=== PATIENT | female | born 1960 | race Caucasian/White ===

== ENCOUNTER 2018-04-09 04:59 | Emergency (ER) | payer MEDICAID ==
[~2018-04-09] VITALS: Ht 165.1 cm; Wt 101.0 kg
[~2018-04-09 04:59] MED LIST: ALBU18HF2 INH; ASPI-1265 PO; ATOR20TA66 PO; CLOP75TA35 PO; FLUO20CA39 PO; FLUT250D INH; FURO-150 PO; LAMO25TA PO; LINA290C PO; LORA1TAB PO; METO-292 PO; METO25TA6 PO; MORP-11 PO; MULT-920 PO; NORCO10T PO; PANT40TA4 PO; POTA10TA36 PO; PRED20TA PO; PRIM250T32 PO; TIOT18CA7 IH
--- NOTE | 2018-04-09 05:10 | NUR ---
PT AMBULATORY TO ER [facility] FROM EMS [facility] IN REPLACED BY [facility]. AFTER SITTING IN ER [facility] FOR LESS THAN 5 MINS, PT INFORMS STAFF THAT SHE HAS DEFICATED HERSELF. WANTING STAFF TO CLEAN HER. WIPES PROVIDED
[2018-04-09] MEDS ORDERED: aspirin 81mg tab.chew PO ONE (05:25)
[2018-04-09] MEDS ORDERED: ondansetron/PF 4mg/2ml inj IV ONE (05:25)
[2018-04-09] MEDS ORDERED: morphine 4 MG/ML inj SYRINge IV ONE ×2 (05:25→07:05)
[2018-04-09] MEDS ORDERED: proCHLORperazine 10 MG/2 ml inj IV ONE (07:05)
[2018-04-09 07:12] LABS: ALANINE AMINOTRANSFERASE 26 U/L (12-78); ALBUMIN 3.2 G/DL (3.4-5.0); ALBUMIN/GLOBULIN RATIO 0.8 (1.1-1.5); ALKALINE PHOSPHATASE 103 IU/L (46-116); ANION GAP 10 (8-16); ASPARTATE AMINO TRANSFERASE 14 U/L (10-37); BILIRUBIN,TOTAL 0.5 MG/DL (0.1-1.0); BLOOD UREA NITROGEN 28 MG/DL (7-18); BUN/CREATININE RATIO 26.7 (6.6-38.0); CALCIUM 9.2 MG/DL (8.5-10.1); CHLORIDE 104 MMOL/L (99-107); CREATININE 1.05 MG/DL (0.40-0.90); GLUCOSE 222 MG/DL (70-104); POTASSIUM 4.2 MMOL/L (3.5-5.1); SODIUM 142 MMOL/L (135-145); TOTAL CARBON DIOXIDE 28.1 MMOL/L (24-32); TOTAL PROTEIN 7.2 G/DL (6.4-8.2); eGFR 54 ML/MIN
[2018-04-09 07:14] LABS: BASOPHILS % (AUTO) 0 % (0-1); EOSINOPHILS % (AUTO) 0.2 % (0-6); HEMATOCRIT 49.9 % (35.0-45.0); HEMOGLOBIN 15.8 g/dl (12.0-16.0); LYMPHOCYTES # (AUTO) 1.6 X10'3 (1.1-4.8); LYMPHOCYTES % (AUTO) 18.3 % (21-51); MEAN CORPUSCULAR HEMOGLOBIN 27.7 PG (27.0-31.0); MEAN CORPUSCULAR HGB CONC 31.6 % (33.0-36.5); MEAN CORPUSCULAR VOLUME 87.9 FL (78-98); MONOCYTES # (AUTO) 0.4 X10'3 (0-0.9); NEUTROPHILS % (AUTO) 77.5 % (42-75); PLATELET COUNT 221 X10'3 (140-440); RED BLOOD COUNT 5.68 X10'6 (4.20-5.60); RED CELL DISTRIBUTION WIDTH 15.2 % (11.5-14.5)
[2018-04-09 07:18] LABS: MAGNESIUM 1.9 MG/DL (1.5-2.4)
--- NOTE | 2018-04-09 07:39 | NUR ---
PT FEELING A LITTLE BETTER BUT C/O EPI GASTRIC PAIN. NOTIFY MD. ORDERS RECEIVED.
[2018-04-09 07:58] LABS: LIPASE 348 U/L (73-393)
[2018-04-09] MEDS ORDERED: LIDOcaine Viscous 15ml cup PO ONE (08:15)
[2018-04-09] MEDS ORDERED: famotidine 20mg tablet PO ONE (08:15)
[2018-04-09] MEDS ORDERED: mag hydrox/Alum hydrox/simeth 30ml oral suspension PO ONE (08:15)
[2018-04-09] MEDS ORDERED: levoFLOXACIN-Levaquin 750MG/D5 150 ML IV STA (09:40)
[2018-04-09] MEDS ORDERED: LEVO750T21 PO (10:59)
[2018-04-09 11:15] VITALS: BP 135/58
--- NOTE | 2018-04-09 11:16 | NUR ---
PT REPORTS THAT HER ABD PAIN IS MUCH BETTER.
== END 2018-04-09 12:43 | disposition home or self-care (01) ==
LOC: ER 05:00
DX: J18.1 Lobar pneumonia, unspecified organism (principal); F11.23 Opioid dependence with withdrawal; G89.29 Other chronic pain; R11.10 Vomiting, unspecified; R19.7 Diarrhea, unspecified; E11.42 Type 2 diabetes mellitus with diabetic polyneuropathy; I25.10 Atherosclerotic heart disease of native coronary artery without angina pectoris; J44.9 Chronic obstructive pulmonary disease, unspecified; M19.90 Unspecified osteoarthritis, unspecified site; M79.7 Fibromyalgia; F12.90 Cannabis use, unspecified, uncomplicated; Z95.5 Presence of coronary angioplasty implant and graft; Z90.49 Acquired absence of other specified parts of digestive tract; Z98.890 Other specified postprocedural states; Z59.0 Homelessness; Z88.5 Allergy status to narcotic agent; Z88.1 Allergy status to other antibiotic agents; Z88.8 Allergy status to other drugs, medicaments and biological substances; Z79.82 Long term (current) use of aspirin; Z79.899 Other long term (current) drug therapy
CPT/HCPCS: 36415; 71045; 80053; 83690; 83735; 83880; 84484; 85025; 87040; 93005; 96365; 96366; 96375; 96376; 99284; J0780; J1956; J2270; J2405

== ENCOUNTER 2018-05-08 13:15 | Inpatient (IN) | payer MEDICAID ==
[~2018-05-08] VITALS: Ht 165.1 cm; Wt 111.5 kg
[~2018-05-08 13:15] MED LIST changes: -PRED20TA PO
[2018-05-08] MEDS ORDERED: ipratropium/albuterol 3ml nebule NEB ONE (14:05)
[2018-05-08 14:12] LABS: ALANINE AMINOTRANSFERASE 15 U/L (12-78); ALBUMIN/GLOBULIN RATIO 0.4 (1.1-1.5); ALKALINE PHOSPHATASE 173 IU/L (46-116); ANION GAP 15 (8-16); ASPARTATE AMINO TRANSFERASE 18 U/L (10-37); BILIRUBIN,TOTAL 0.7 MG/DL (0.1-1.0); BLOOD UREA NITROGEN 46 MG/DL (7-18); CALCIUM 8.7 MG/DL (8.5-10.1); CHLORIDE 94 MMOL/L (99-107); CREATININE 2.09 MG/DL (0.40-0.90); GLUCOSE 167 MG/DL (70-104); POTASSIUM 4.4 MMOL/L (3.5-5.1); SODIUM 129 MMOL/L (135-145); TOTAL CARBON DIOXIDE 20.2 MMOL/L (24-32); TOTAL PROTEIN 6.6 G/DL (6.4-8.2); eGFR 25 ML/MIN
[2018-05-08 14:13] LABS: BASOPHILS % (AUTO) 0.2 % (0-1); EOSINOPHILS % (AUTO) 0 % (0-6); HEMATOCRIT 41.4 % (35.0-45.0); HEMOGLOBIN 13.6 g/dl (12.0-16.0); LYMPHOCYTES # (AUTO) 0.5 X10'3 (1.1-4.8); LYMPHOCYTES % (AUTO) 2.9 % (21-51); MEAN CORPUSCULAR HEMOGLOBIN 28.7 PG (27.0-31.0); MEAN CORPUSCULAR HGB CONC 32.9 g/dL (33.0-36.5); MEAN CORPUSCULAR VOLUME 87.4 FL (78-98); MEAN PLATELET VOLUME 8.8 FL (7.4-10.4); MONOCYTES # (AUTO) 0.2 X10'3 (0-0.9); MONOCYTES % (AUTO) 1.2 % (2-12); NEUTROPHILS # (AUTO) 15.2 X10'3 (1.8-7.7); NEUTROPHILS % (AUTO) 95.7 % (42-75); PLATELET COUNT 209 X10'3 (140-440); RED BLOOD COUNT 4.74 X10'6 (4.20-5.60); RED CELL DISTRIBUTION WIDTH 16.5 % (11.5-14.5); WHITE BLOOD COUNT 15.9 X10'3 (4.5-11.0)
[2018-05-08 14:32] LABS: PARTIAL THROMBOPLASTIN TIME 32 SECONDS (22-32)
[2018-05-08] MEDS ORDERED: normal saline 1000ML IV soln IVB ONE ×2 (14:35→14:55)
[2018-05-08] MEDS ORDERED: CefTRIAXone 2gm/D5W 50ml 50 ML IV ONE (14:40)
[2018-05-08 14:54] LABS: ANISOCYTOSIS 1+; PLATELET ESTIMATE NORMAL; TOTAL CELLS COUNTED 100
[2018-05-08 14:55] LABS: TOXIC GRANULATION 1+
[2018-05-08] MEDS ORDERED: azithromycin/NS 500mg/250ml 250 ML IV ONE (14:55)
--- NOTE | 2018-05-08 15:30 | NUR ---
PAGED HOSP 1530 FOR 2ND TIME
[2018-05-08] MEDS ORDERED: magnesium hydroxide 30ml (MOM) UD suspension PO PRN (15:35)
[2018-05-08] MEDS ORDERED: acetaminophen 325mg tablet PO PRN (15:35)
[2018-05-08] MEDS ORDERED: mag hydrox/Alum hydrox/simeth 30ml oral suspension PO PRN (15:35)
[2018-05-08] MEDS ORDERED: ondansetron/PF 4mg/2ml inj IV PRN (15:35)
[2018-05-08] MEDS: vancomycin/NS 1 GM ADD-VANTAGE 250 ML IV SCH ×2 (15:37→17:27)
--- NOTE | 2018-05-08 15:55 | NUR ---
PT'S IV PULLED OUT.
[2018-05-08] MEDS ORDERED: CLOP75TA15 PO (16:06)
[2018-05-08] MEDS ORDERED: METO25TA6 PO (16:07)
[2018-05-08] MEDS ORDERED: POTA8TAB8 PO (16:11)
[2018-05-08] MEDS ORDERED: ASPI-1130 PO (16:11)
[2018-05-08] MEDS ORDERED: GLIM4TAB79 PO (16:11)
[2018-05-08] MEDS ORDERED: ATOR40TA72 PO (16:11)
[2018-05-08] MEDS ORDERED: LAMO100T89 PO (16:11)
[2018-05-08] MEDS ORDERED: LISI40TA4 PO (16:11)
[2018-05-08] MEDS ORDERED: ALBU2.5V10 IH (16:11)
[2018-05-08] MEDS ORDERED: HYDR-3973 PO (16:11)
[2018-05-08] MEDS ORDERED: METF-438 PO (16:11)
[2018-05-08] MEDS ORDERED: FURO80TA3 PO (16:11)
[2018-05-08] MEDS ORDERED: MSC30T PO (16:11)
[2018-05-08] MEDS ORDERED: METO10TA3 PO (16:11)
[2018-05-08] MEDS ORDERED: FLUO-1 PO (16:13)
[2018-05-08] MEDS ORDERED: TIZA2TAB4 PO (16:13)
[2018-05-08] MEDS ORDERED: FLUT1AER IH (16:13)
[2018-05-08] MEDS ORDERED: TIOT18CA3 IH (16:13)
[2018-05-08] MEDS ORDERED: FLUT16SP26 NS (16:17)
[2018-05-08] MEDS ORDERED: FERR-29 PO (16:17)
[2018-05-08] MEDS ORDERED: MONT10TA24 PO (16:17)
[2018-05-08] MEDS ORDERED: tizanidine 4mg tablet PO PRN (16:25)
[2018-05-08] MEDS: ipratropium/albuterol 3ml nebule NEB SCH ×2 (19:04→22:56)
[2018-05-08] MEDS: levoFLOXACIN-Levaquin 500mg/D5 100 ML IV SCH (19:12)
--- NOTE | 2018-05-08 19:16 | NUR ---
RT AT BEDSIDE
[2018-05-08 19:30] VITALS: BP 131/57
--- NOTE | 2018-05-08 19:45 | NUR ---
Patient arrived on floor via gurney from the ED after receiving report from Codi CHUNG. Patient was transferred to hospital bed utilizing a slide board. Patient extremely lethargic, unable to stay awake. Does not answer questions appropriately. Vitals taken, placed on bedside mobile. Contacted Dr. Wilkes regarding patient ALOC, ABG ordered at this time. Results called to Dr. Wilkes, no new orders at this time. Patient has dried feces on clothing, abdomen, groin and buttocks. Patient changed into hospital gown, and clean at this time, all soiled bedding changed at this time as well. Will continue to monitor closely
[2018-05-08] MEDS: metoprolol tartrate 25mg tablet PO SCH (20:00)
[2018-05-08] MEDS ORDERED: furosemide 10 MG/1 ML 10ml inj IV SCH (20:00)
[2018-05-08 20:01] LABS: ABG BASE EXCESS -6.9 mmol/L (-2.0-3.0); ABG OXYGEN SATURATION 89.8 % (95-98); ABG PCO2 (T) 45.8 mmHg (32.0-45.0); ABG PH (T) 7.259 (7.350-7.450); ALLEN'S TEST Positive; FCOHb 3.3 % (0.5-1.5); FLOW 4 L/min; FO2Hb 86.8 % (94-100); PATIENT TEMPERATURE 37.4; TOTAL HEMOGLOBIN 13.4 G/dl (12.0-16.0)
[2018-05-08] MEDS ORDERED: dextrose 50%-water 50ml dispensing syringe IV PRN ×2 (20:50)
[2018-05-08] MEDS ORDERED: glucagon, human recombinant 1mg kit SUBCUT PRN (20:50)
[2018-05-08] MEDS ORDERED: dextrose ORAL solution 15 GM/59 ML bottle PO PRN ×2 (20:50)
[2018-05-08] MEDS ORDERED: MESSAGE TO PHARMACY PO ONE (20:50)
[2018-05-08] MEDS: insulin glargine (Lantus) pen - multi-dose SQ SCH (21:00)
[2018-05-08] MEDS: methylPREDNISolone sod succ 125mg/2ml vial IV SCH (21:22)
[2018-05-08] MEDS: metoclopramide 10mg tablet PO SCH (21:24)
[2018-05-08] MEDS: heparin, porcine 5000 units/ml vial SQ SCH (21:24)
[2018-05-08 23:00] VITALS: BP 109/41
[2018-05-09] MEDS: methylPREDNISolone sod succ 125mg/2ml vial IV SCH ×4 (02:31→20:13)
[2018-05-09] MEDS: ipratropium/albuterol 3ml nebule NEB SCH ×6 (02:41→22:32)
[2018-05-09] MEDS ORDERED: normal saline 1000ml 1,000 ML IV ONE (03:10)
[2018-05-09 03:31] LABS: BASOPHILS % (AUTO) 0 % (0-1); EOSINOPHILS % (AUTO) 0 % (0-6); HEMOGLOBIN 12.4 g/dl (12.0-16.0); LYMPHOCYTES # (AUTO) 0.7 X10'3 (1.1-4.8); MEAN CORPUSCULAR HEMOGLOBIN 28.8 PG (27.0-31.0); MEAN CORPUSCULAR HGB CONC 32.6 g/dL (33.0-36.5); MEAN CORPUSCULAR VOLUME 88.3 FL (78-98); MEAN PLATELET VOLUME 8.8 FL (7.4-10.4); MONOCYTES # (AUTO) 0.4 X10'3 (0-0.9); MONOCYTES % (AUTO) 2.4 % (2-12); NEUTROPHILS % (AUTO) 93.6 % (42-75); PLATELET COUNT 216 X10'3 (140-440); RED BLOOD COUNT 4.31 X10'6 (4.20-5.60); RED CELL DISTRIBUTION WIDTH 16.9 % (11.5-14.5); WHITE BLOOD COUNT 18.2 X10'3 (4.5-11.0)
[2018-05-09 03:47] LABS: ALBUMIN 1.7 G/DL (3.4-5.0); ANION GAP 13 (8-16); BLOOD UREA NITROGEN 48 MG/DL (7-18); BUN/CREATININE RATIO 27.9 (6.6-38.0); CALCIUM 8.6 MG/DL (8.5-10.1); CHLORIDE 98 MMOL/L (99-107); CREATININE 1.72 MG/DL (0.40-0.90); GLUCOSE 165 MG/DL (70-104); POTASSIUM 4.5 MMOL/L (3.5-5.1); SODIUM 134 MMOL/L (135-145); TOTAL CARBON DIOXIDE 22.7 MMOL/L (24-32); eGFR 31 ML/MIN
[2018-05-09 06:00] VITALS: BP 113/46
--- NOTE | 2018-05-09 06:33 | NUR ---
Problems reprioritized. Patient report given, questions answered & plan of care reviewed with Barb CHUNG.
[2018-05-09] MEDS: BUDESONIDE 0.25 MG/2 ML AMPUL.NEB IH SCH ×2 (07:29→18:35)
[2018-05-09] MEDS: heparin, porcine 5000 units/ml vial SQ SCH ×3 (08:00→20:11)
[2018-05-09] MEDS ORDERED: albuterol 2.5 MG/3 ML nebule NEB SCH (08:00)
[2018-05-09] MEDS ORDERED: ipratropium 0.5 MG/2.5ML nebule IH SCH (08:00)
--- NOTE | 2018-05-09 09:23 | NUR ---
DM consult: Pt with A1c 7.5. Pt seen by GIOVANNI at previous visit 03/23/18, pt denied written DM education or any questions about DM management at that time. Pt admit with sepsis secondary to PNA. Per physical assessment pt A/O x 2, fatigued, extremely lethargic and unable to stay awake. DM and protein education not appropriate at this time. Will continue to follow and provide education once pt more alert and oriented. Addendum: 05/09/18 at [address] Amended: Links added.
[2018-05-09] MEDS ORDERED: magnesium 4gm in 100ml NS 100 ML IV PRN (09:35)
[2018-05-09] MEDS ORDERED: potassium Cl 40MEQ/NS 500ml 500 ML IV PRN ×2 (09:35)
[2018-05-09] MEDS ORDERED: potassium Cl 20 mEq SR tablet PO PRN ×2 (09:35)
[2018-05-09] MEDS ORDERED: magnesium Cl slow-release 64mg tablet PO PRN (09:35)
[2018-05-09] MEDS: levoFLOXACIN-Levaquin 500mg/D5 100 ML IV SCH (09:58)
[2018-05-09] MEDS: metoclopramide 10mg tablet PO SCH ×2 (10:08→20:07)
[2018-05-09] MEDS: clopidogrel 75mg tablet PO SCH (10:08)
[2018-05-09] MEDS: potassium chloride 8mEq ER tablet PO SCH (10:09)
[2018-05-09] MEDS: montelukast 10mg tablet PO SCH (10:09)
[2018-05-09] MEDS: aspirin 81mg tablet.DR PO SCH (10:09)
[2018-05-09] MEDS: atorvastatin 20mg tablet PO SCH (10:09)
[2018-05-09] MEDS: ferrous sulfate 325mg tablet PO SCH (10:09)
[2018-05-09] MEDS: metoprolol tartrate 25mg tablet PO SCH ×2 (10:10→20:08)
[2018-05-09] MEDS: lamoTRIgine 100mg tablet PO SCH (10:10)
[2018-05-09] MEDS: fluticasone nasal spray 16GM bottle NS SCH (10:11)
[2018-05-09] MEDS: insulin Lispro (HumaLOG) vial - multi-dose SQ SCH ×3 (10:30→18:35)
[2018-05-09] MEDS: FLUoxetine 20mg capsule PO SCH (10:32)
[2018-05-09] MEDS: furosemide 40mg/4ml inj IV SCH ×2 (10:34→20:11)
[2018-05-09 11:00] VITALS: BP 118/51
--- NOTE | 2018-05-09 12:39 | NUR ---
Paged Dr. Linton: PAGER ID: [phone] MESSAGE: Barb CHILDS [phone] RE: Alice Sharma [phone]. Can we order a carb controlled diet for this patient? Patient is diabetic but has HH only diet ordered. Thank you.
[2018-05-09 15:00] VITALS: BP 108/47
[2018-05-09 16:43] LABS: CLARITY,URINE CLEAR (Clear); COLOR,URINE YELLOW (Yellow); GLUCOSE, URINE NEGATIVE (Neg); KETONES,URINE NEGATIVE (Neg); LEUKOCYTE ESTERASE ,URINE NEGATIVE (Neg); NITRITES, URINE NEGATIVE (Neg); OCCULT BLOOD,URINE NEGATIVE (Neg); PH,URINE 5.5 (4.8-8.0); PROTEIN,URINE TRACE mg/dl (Neg); UROBILINOGEN,URINE 0.2 E.U/dL (0.2-1.0)
[2018-05-09 16:51] LABS: UA COLLECTION TYPE NON-SPECIFIED
[2018-05-09 16:53] LABS: MUCUS STRANDS FEW /LPF (Neg); SQUAMOUS EPITHELIAL CELL,UR MODERATE /LPF (FEW); URINE AMPHETAMINE SCREEN NEGATIVE (Neg); URINE BARBITUATE SCREEN NEGATIVE (Neg); URINE BENZODIAZEPINES SCREEN NEGATIVE (Neg); URINE CANNABINOID SCREEN NEGATIVE (Neg); URINE COCAINE SCREEN NEGATIVE (Neg); URINE METHADONE SCREEN NEGATIVE (Neg); URINE OPIATE SCREEN POSITIVE (Neg); URINE PHENCYCLIDINE SCREEN NEGATIVE (Neg)
[2018-05-09 16:54] LABS: AMORPHOUS URATES 1+; BACTERIA,URINE 1+ /HPF (Neg)
[2018-05-09 16:55] LABS: RBC,URINE NONE SEEN /HPF (0-2); WBC,URINE 0-4 /HPF (0-4)
[2018-05-09 18:00] VITALS: BP 119/53
--- NOTE | 2018-05-09 18:23 | NUR ---
Problems reprioritized. Patient report given, questions answered & plan of care reviewed with Julieth CHUNG.
--- NOTE | 2018-05-09 18:24 | NUR ---
Patient in room PCU 3020. I have received report from SHELDON Day and had the opportunity to ask questions and assume patient care. Patient was sleeping comfortably on hospital bed, she just finished dinner. She is A&O x3, WHATLEY and is appropriate just not interested in anything but sleeping. She is easy to arouse, I will continue to monitor.
[2018-05-09 19:00] VITALS: BP 119/53
[2018-05-09] MEDS: lactobacillus rhamnosus 10,000 MMU CELLS/CAPSULE PO SCH (20:11)
[2018-05-09] MEDS: lisinopril 20mg tablet PO SCH (22:12)
[2018-05-09] MEDS: insulin glargine (Lantus) pen - multi-dose SQ SCH (22:17)
[2018-05-09 23:00] VITALS: BP 107/52
--- NOTE | 2018-05-09 23:45 | NUR ---
Notified by Annie in the Tele Box that patient's HR is increased 110-140, her rhythm looks like she is trying to go into afib. Patient is asymptomatic at this time, I will get an EKG and call the hospitalist Dr. Wilkes.
[2018-05-10] VITALS (24 sets, daily range): BP systolic 85–133; BP diastolic 48–100
--- NOTE | 2018-05-10 | NUR ---
Called Dr. Wilkes regarding patient new onset of Afib, her HR is between 110-135 and is asymptomatic at this time. Per MD give Cardizem 10mg IV push now and monitor.
[2018-05-10] MEDS ORDERED: diltiazem 5mg/ml 5ml inj. IV ONE (00:05)
--- NOTE | 2018-05-10 01:00 | NUR ---
Cld Dr. Wilkes, patient's rhythm is still afib and her heart rate is back up to the 103-140's. Per MD start Cardizem 5mg/hr drip.
[2018-05-10] MEDS: diltiazem-D5W 125mg/125ml 125 ML IV SCH ×2 (01:35→16:51)
[2018-05-10] MEDS: HYDROcodone/acetaminophen 10/325mg tab PO PRN ×3 (01:43→16:51)
--- NOTE | 2018-05-10 01:46 | NUR ---
Patient requesting Morphine, she reports she takes it daily. I advised her Dr. Callejas discontinued that med, but I have [place] 10/325mg that the MD ordered for her pain. She is not happy about this, but will speak with the MD tomorrow.
[2018-05-10] MEDS: methylPREDNISolone sod succ 125mg/2ml vial IV SCH ×4 (02:40→19:45)
[2018-05-10] MEDS: ipratropium/albuterol 3ml nebule NEB SCH ×6 (02:54→23:13)
[2018-05-10 06:07] LABS: BASOPHILS % (AUTO) 0 % (0-1); EOSINOPHILS # (AUTO) 0.5 X10'3 (0-0.9); EOSINOPHILS % (AUTO) 2.1 % (0-6); HEMATOCRIT 37.9 % (35.0-45.0); HEMOGLOBIN 12.3 g/dl (12.0-16.0); LYMPHOCYTES # (AUTO) 0.5 X10'3 (1.1-4.8); LYMPHOCYTES % (AUTO) 2.4 % (21-51); MEAN CORPUSCULAR HEMOGLOBIN 28.6 PG (27.0-31.0); MEAN CORPUSCULAR HGB CONC 32.4 g/dL (33.0-36.5); MEAN CORPUSCULAR VOLUME 88.1 FL (78-98); MEAN PLATELET VOLUME 8.7 FL (7.4-10.4); MONOCYTES # (AUTO) 0.4 X10'3 (0-0.9); NEUTROPHILS # (AUTO) 20.5 X10'3 (1.8-7.7); NEUTROPHILS % (AUTO) 93.5 % (42-75); PLATELET COUNT 236 X10'3 (140-440); RED BLOOD COUNT 4.31 X10'6 (4.20-5.60); RED CELL DISTRIBUTION WIDTH 16.9 % (11.5-14.5)
[2018-05-10 06:24] LABS: ALBUMIN 1.7 G/DL (3.4-5.0); ANION GAP 14 (8-16); BLOOD UREA NITROGEN 49 MG/DL (7-18); BUN/CREATININE RATIO 38.6 (6.6-38.0); CALCIUM 9.3 MG/DL (8.5-10.1); CHLORIDE 100 MMOL/L (99-107); CREATININE 1.27 MG/DL (0.40-0.90); GLUCOSE 229 MG/DL (70-104); MAGNESIUM 2.1 MG/DL (1.5-2.4); PHOSPHORUS 4.2 MG/DL (2.3-4.5); POTASSIUM 4.1 MMOL/L (3.5-5.1); SODIUM 135 MMOL/L (135-145); TOTAL CARBON DIOXIDE 20.9 MMOL/L (24-32); eGFR 44 ML/MIN
--- NOTE | 2018-05-10 06:29 | NUR ---
Precepted for SHELDON Butler and I agree with his charting.
[2018-05-10] MEDS: clopidogrel 75mg tablet PO SCH (07:11)
[2018-05-10] MEDS: FLUoxetine 20mg capsule PO SCH (07:12)
[2018-05-10] MEDS: atorvastatin 20mg tablet PO SCH (07:13)
[2018-05-10] MEDS: lactobacillus rhamnosus 10,000 MMU CELLS/CAPSULE PO SCH ×2 (07:13→19:44)
[2018-05-10] MEDS: lamoTRIgine 100mg tablet PO SCH (07:13)
[2018-05-10] MEDS: furosemide 40mg/4ml inj IV SCH ×2 (07:14→19:45)
[2018-05-10] MEDS: aspirin 81mg tablet.DR PO SCH (07:14)
[2018-05-10] MEDS: montelukast 10mg tablet PO SCH (07:14)
[2018-05-10] MEDS: metoclopramide 10mg tablet PO SCH ×2 (07:14→19:44)
[2018-05-10] MEDS: potassium chloride 8mEq ER tablet PO SCH (07:14)
[2018-05-10] MEDS: ferrous sulfate 325mg tablet PO SCH (07:15)
[2018-05-10] MEDS: metoprolol tartrate 25mg tablet PO SCH ×2 (07:15→19:44)
[2018-05-10] MEDS: heparin, porcine 5000 units/ml vial SQ SCH (07:16)
[2018-05-10] MEDS: levoFLOXACIN-Levaquin 250mg/D5 50 ML IV SCH (08:47)
[2018-05-10] MEDS: fluticasone nasal spray 16GM bottle NS SCH (08:47)
[2018-05-10] MEDS: insulin Lispro (HumaLOG) vial - multi-dose SQ SCH ×3 (08:55→18:32)
[2018-05-10] MEDS: BUDESONIDE 0.25 MG/2 ML AMPUL.NEB IH SCH ×2 (11:31→19:19)
--- NOTE | 2018-05-10 13:24 | NUR ---
Problems reprioritized. Patient report given, questions answered & plan of care reviewed with SHELDON Caballero.
--- NOTE | 2018-05-10 14:00 | NUR ---
talked to MD octavio beach going @ 10 and order was for 5 he okayed the increase to 10 will change order in MAR
[2018-05-10] MEDS ORDERED: digoxin 250mcg/ml 2ml ampule IV ONE ×2 (16:59→23:00)
--- NOTE | 2018-05-10 17:47 | NUR ---
MD cunningham called to man if he wanted both cardizem gtt and dig for pt, he asked to reduce rate of cardizem gtt to 5.
[2018-05-10] MEDS: apixaban 5mg tablet PO SCH (19:44)
[2018-05-10] MEDS: morphine ER 30mg tablet PO SCH (19:44)
[2018-05-10] MEDS: lisinopril 20mg tablet PO SCH (19:48)
[2018-05-10] MEDS: insulin glargine (Lantus) pen - multi-dose SQ SCH (20:57)
[2018-05-11] VITALS (9 sets, daily range): BP systolic 120–137; BP diastolic 42–88
[2018-05-11] MEDS: HYDROcodone/acetaminophen 10/325mg tab PO PRN (01:43)
[2018-05-11] MEDS: ipratropium/albuterol 3ml nebule NEB SCH ×4 (03:25→14:58)
[2018-05-11 05:53] LABS: BASOPHILS % (AUTO) 0 % (0-1); EOSINOPHILS # (AUTO) 0.2 X10'3 (0-0.9); EOSINOPHILS % (AUTO) 1.2 % (0-6); HEMATOCRIT 38.4 % (35.0-45.0); HEMOGLOBIN 12.7 g/dl (12.0-16.0); LYMPHOCYTES # (AUTO) 0.6 X10'3 (1.1-4.8); LYMPHOCYTES % (AUTO) 4.2 % (21-51); MEAN CORPUSCULAR HGB CONC 33.1 g/dL (33.0-36.5); MEAN CORPUSCULAR VOLUME 87.6 FL (78-98); MEAN PLATELET VOLUME 8.7 FL (7.4-10.4); MONOCYTES % (AUTO) 0.2 % (2-12); NEUTROPHILS # (AUTO) 12.5 X10'3 (1.8-7.7); NEUTROPHILS % (AUTO) 94.4 % (42-75); PLATELET COUNT 257 X10'3 (140-440); RED BLOOD COUNT 4.38 X10'6 (4.20-5.60); RED CELL DISTRIBUTION WIDTH 17.3 % (11.5-14.5); WHITE BLOOD COUNT 13.3 X10'3 (4.5-11.0)
[2018-05-11 06:08] LABS: ALBUMIN 1.8 G/DL (3.4-5.0); ANION GAP 11 (8-16); BLOOD UREA NITROGEN 49 MG/DL (7-18); BUN/CREATININE RATIO 40.8 (6.6-38.0); CALCIUM 9.3 MG/DL (8.5-10.1); CHLORIDE 101 MMOL/L (99-107); GLUCOSE 248 MG/DL (70-104); PHOSPHORUS 4.4 MG/DL (2.3-4.5); POTASSIUM 4.3 MMOL/L (3.5-5.1); SODIUM 136 MMOL/L (135-145); TOTAL CARBON DIOXIDE 23.9 MMOL/L (24-32); eGFR 47 ML/MIN
--- NOTE | 2018-05-11 06:09 | NUR ---
Problems reprioritized. Patient report given, questions answered & plan of care reviewed with SHELDON Valle.
--- NOTE | 2018-05-11 06:11 | NUR ---
Patient in room PCU 3020. I have received report from Ada CHUNG and had the opportunity to ask questions and assume patient care.
[2018-05-11] MEDS ORDERED: digoxin 125mcg (0.125mg) tablet PO SCH (07:00)
[2018-05-11] MEDS: potassium chloride 8mEq ER tablet PO SCH (07:55)
[2018-05-11] MEDS: fluticasone nasal spray 16GM bottle NS SCH (07:55)
[2018-05-11] MEDS: lamoTRIgine 100mg tablet PO SCH (07:56)
[2018-05-11] MEDS: furosemide 40mg/4ml inj IV SCH (07:56)
[2018-05-11] MEDS: clopidogrel 75mg tablet PO SCH (07:57)
[2018-05-11] MEDS: apixaban 5mg tablet PO SCH (07:57)
[2018-05-11] MEDS: lactobacillus rhamnosus 10,000 MMU CELLS/CAPSULE PO SCH (07:58)
[2018-05-11] MEDS: montelukast 10mg tablet PO SCH (07:58)
[2018-05-11] MEDS: metoclopramide 10mg tablet PO SCH (07:59)
[2018-05-11] MEDS: aspirin 81mg tablet.DR PO SCH (08:00)
[2018-05-11] MEDS: morphine ER 30mg tablet PO SCH (08:00)
[2018-05-11] MEDS: FLUoxetine 20mg capsule PO SCH (08:00)
[2018-05-11] MEDS: metoprolol tartrate 25mg tablet PO SCH (08:02)
[2018-05-11] MEDS: atorvastatin 20mg tablet PO SCH (08:03)
[2018-05-11] MEDS: ferrous sulfate 325mg tablet PO SCH (08:04)
[2018-05-11] MEDS: levoFLOXACIN-Levaquin 250mg/D5 50 ML IV SCH (08:04)
[2018-05-11] MEDS: methylPREDNISolone sod succ 125mg/2ml vial IV SCH (08:11)
[2018-05-11] MEDS: insulin Lispro (HumaLOG) vial - multi-dose SQ SCH ×2 (08:25→14:06)
--- NOTE | 2018-05-11 12:30 | NUR ---
paged Dr. Linton PAGER ID: [phone] MESSAGE: [phone] Alice Sharma. she has started PO dig this am and has been rate controlled. on Cardizem IV at 5mLs/hr. would you like to continue IV Cardizem. thank you. Riki CHUNG. ext [phone]
[2018-05-11] MEDS ORDERED: LACT1CAP26 PO (12:35)
[2018-05-11] MEDS ORDERED: DIGO125T5 PO (12:35)
[2018-05-11] MEDS ORDERED: PRED10TA23 PO (12:35)
[2018-05-11] MEDS ORDERED: APIX5TAB3 PO (12:35)
[2018-05-11] MEDS: BUDESONIDE 0.25 MG/2 ML AMPUL.NEB IH SCH (12:36)
[2018-05-11] MEDS ORDERED: LEVO500T89 PO ×3 (12:40→16:46)
--- NOTE | 2018-05-11 15:20 | NUR ---
SS met with pt provided a copy of the [employer] current listing of low income apartments that accommodates individuals w/disability. Pt scheduled to d/c today and will return to the [place]. SS referral closed.
[2018-05-11] MEDS ORDERED: DILT180C89 PO (16:08)
[2018-05-11] MEDS ORDERED: CLOP75TA35 PO (16:20)
[2018-05-11] MEDS ORDERED: METO10TA3 PO (16:32)
--- NOTE | 2018-05-11 19:15 | NUR ---
pt received discharge education, all questions answered. IV d/c'd; cannula intact. pt removed from mobile and wheeled downstairs to private vehicle with all belongs.
== END 2018-05-11 19:10 | disposition home or self-care (01) | DRG 720 ==
LOC: ER 13:15 → ED HOLD 15:33 → CMPBEDREQ 19:31 → PCU 3S 19:32
PROVIDERS: ADMIT Family Medicine; ATTEND Family Medicine
DX: A41.9 Sepsis, unspecified organism (principal); N17.9 Acute kidney failure, unspecified; J18.9 Pneumonia, unspecified organism; E11.42 Type 2 diabetes mellitus with diabetic polyneuropathy; I50.9 Heart failure, unspecified; I48.91 Unspecified atrial fibrillation; E87.1 Hypo-osmolality and hyponatremia; F17.210 Nicotine dependence, cigarettes, uncomplicated; G89.4 Chronic pain syndrome; I25.10 Atherosclerotic heart disease of native coronary artery without angina pectoris; F12.90 Cannabis use, unspecified, uncomplicated; F32.9 Major depressive disorder, single episode, unspecified; F41.9 Anxiety disorder, unspecified; M19.90 Unspecified osteoarthritis, unspecified site; J44.0 Chronic obstructive pulmonary disease with (acute) lower respiratory infection; Z60.2 Problems related to living alone; J44.1 Chronic obstructive pulmonary disease with (acute) exacerbation; M79.7 Fibromyalgia; Z79.01 Long term (current) use of anticoagulants; Z79.82 Long term (current) use of aspirin; Z91.19 Patient's noncompliance with other medical treatment and regimen; Z95.5 Presence of coronary angioplasty implant and graft; Z99.81 Dependence on supplemental oxygen; Z59.0 Homelessness; Z88.1 Allergy status to other antibiotic agents; Z88.5 Allergy status to narcotic agent; Z88.8 Allergy status to other drugs, medicaments and biological substances; Z90.49 Acquired absence of other specified parts of digestive tract; Z82.5 Family history of asthma and other chronic lower respiratory diseases; Z83.3 Family history of diabetes mellitus; Z81.8 Family history of other mental and behavioral disorders; Z71.6 Tobacco abuse counseling
CPT/HCPCS: 36415; 36600; 71045; 80048; 80053; 80305; 81001; 82803; 82948; 83605; 83735; 83880; 84100; 84145; 84484; 85018; 85025; 85610; 85730; 87040; 87070; 87502; 87503; 93005; 94640; 94760; 96361; 96365; 99285; G0378; J0696; J1160; J1644; J1815; J1940; J1956; J2930; J3370; J3490; J7030; J8597

== ENCOUNTER 2019-01-03 00:13 | Inpatient (IN) | payer MEDICAID ==
[~2019-01-03] VITALS: Ht 162.6 cm; Wt 98.6 kg
[~2019-01-03 00:13] MED LIST changes: -ALBU18HF2 INH; +APIX5TAB3 PO; +ASPI-1130 PO; -ASPI-1265 PO; -ATOR20TA66 PO; +ATOR40TA72 PO; +DILT180C89 PO; +FERR-29 PO; +FLUO-1 PO; -FLUO20CA39 PO; -FLUT250D INH; -FURO-150 PO; +FURO20TA4 PO; +HYDR-3973 PO; +LAMO100T PO; -LAMO25TA PO; +LEVO750T46 PO; -LINA290C PO; +LISI40TA4 PO; -LORA1TAB PO; -METO-292 PO; +METO10TA3 PO; +MONT10TA24 PO; -MORP-11 PO; +MSC30T PO; -MULT-920 PO; -NORCO10T PO; -PANT40TA4 PO; -POTA10TA36 PO; +POTA8TAB8 PO; +PRED10TA PO; -PRIM250T32 PO; +TIOT18CA3 IH; -TIOT18CA7 IH; +TIZA2TAB5 PO
[2019-01-03] MEDS ORDERED: ipratropium/albuterol 3ml nebule NEB ONE (00:15)
[2019-01-03] MEDS ORDERED: normal saline 1000ML IV soln IV ONE (00:15)
[2019-01-03] MEDS ORDERED: levoFLOXACIN-Levaquin 750MG/D5 150 ML IV STA (00:35)
[2019-01-03] MEDS ORDERED: methylPREDNISolone sod succ 125mg/2ml vial IV ONE (00:40)
[2019-01-03 00:47] LABS: BASOPHILS % (AUTO) 0.5 % (0-1); EOSINOPHILS # (AUTO) 0.1 X10'3 (0-0.9); EOSINOPHILS % (AUTO) 1.2 % (0-6); HEMATOCRIT 47.6 % (35.0-45.0); HEMOGLOBIN 15.7 g/dl (12.0-16.0); LYMPHOCYTES # (AUTO) 2.3 X10'3 (1.1-4.8); LYMPHOCYTES % (AUTO) 33.2 % (21-51); MEAN CORPUSCULAR VOLUME 90.8 FL (78-98); MEAN PLATELET VOLUME 8.1 FL (7.4-10.4); MONOCYTES # (AUTO) 0.5 X10'3 (0-0.9); MONOCYTES % (AUTO) 7.5 % (2-12); NEUTROPHILS % (AUTO) 57.6 % (42-75); PLATELET COUNT 260 X10'3 (140-440); RED BLOOD COUNT 5.24 X10'6 (4.20-5.60); RED CELL DISTRIBUTION WIDTH 14.2 % (11.5-14.5); WHITE BLOOD COUNT 6.9 X10'3 (4.5-11.0)
[2019-01-03 00:58] LABS: ALANINE AMINOTRANSFERASE 38 U/L (12-78); ALBUMIN 3.2 G/DL (3.4-5.0); ALBUMIN/GLOBULIN RATIO 0.7 (1.1-1.5); ALKALINE PHOSPHATASE 120 IU/L (46-116); ANION GAP 5 (8-16); ASPARTATE AMINO TRANSFERASE 19 U/L (10-37); BILIRUBIN,TOTAL 0.2 MG/DL (0.1-1.0); BLOOD UREA NITROGEN 32 MG/DL (7-18); BUN/CREATININE RATIO 23.9 (6.6-38.0); CALCIUM 9.1 MG/DL (8.5-10.1); CHLORIDE 100 MMOL/L (99-107); CREATININE 1.34 MG/DL (0.40-0.90); GLUCOSE 187 MG/DL (70-104); POTASSIUM 4.9 MMOL/L (3.5-5.1); SODIUM 136 MMOL/L (135-145); TOTAL CARBON DIOXIDE 30.6 MMOL/L (24-32); TOTAL PROTEIN 7.5 G/DL (6.4-8.2); eGFR 41 ML/MIN
[2019-01-03 01:06] LABS: MAGNESIUM 1.9 MG/DL (1.5-2.4); TROPONIN I < 0.04 NG/ML (0.0-0.05)
--- NOTE | 2019-01-03 02:25 | NUR ---
Patient failed road test, desated down to 84% on 3L when walking.
[2019-01-03] MEDS ORDERED: PANT40TA4 PO (02:44)
[2019-01-03] MEDS ORDERED: METF500T PO (02:44)
[2019-01-03] MEDS ORDERED: LINA145C PO (02:44)
[2019-01-03] MEDS ORDERED: magnesium Cl slow-release 64mg tablet PO PRN (02:45)
[2019-01-03] MEDS ORDERED: ondansetron/PF 4mg/2ml inj IV PRN (02:45)
[2019-01-03] MEDS ORDERED: magnesium 2GM in 50ml NS 50 ML IV PRN (02:45)
[2019-01-03] MEDS ORDERED: acetaminophen 325mg tablet PO PRN ×2 (02:45)
[2019-01-03] MEDS ORDERED: mag hydrox/Alum hydrox/simeth 30ml oral suspension PO PRN (02:45)
[2019-01-03] MEDS ORDERED: magnesium 4gm in 100ml NS 100 ML IV PRN (02:45)
[2019-01-03] MEDS ORDERED: potassium Cl 20 mEq SR tablet PO PRN ×2 (02:45)
[2019-01-03] MEDS ORDERED: potassium CL 10mEq/100ml bag 100 ML IV PRN ×2 (02:45)
[2019-01-03] MEDS ORDERED: ipratropium/albuterol 3ml nebule NEB PRN (02:45)
[2019-01-03] MEDS ORDERED: magnesium hydroxide 30ml (MOM) UD suspension PO PRN (02:45)
[2019-01-03] MEDS: ipratropium/albuterol 3ml nebule NEB SCH ×6 (03:28→23:29)
[2019-01-03 04:45] VITALS: BP 97/57
[2019-01-03] MEDS ORDERED: FLU VACC QS2019-20 36MOS UP/PF 60 MCG/0.5 ML SYRINGE IMVAC ONE (05:05)
[2019-01-03] MEDS ORDERED: tizanidine 4mg tablet PO PRN (05:40)
[2019-01-03] MEDS ORDERED: metoclopramide 10mg tablet PO PRN (05:40)
[2019-01-03 06:00] VITALS: BP 97/57
--- NOTE | 2019-01-03 06:15 | NUR ---
Patient in room ORTHO 4012. I have received report from Amena, RN and had the opportunity to ask questions and assume patient care. Addendum: 01/03/19 at 0616 by Sharda Ortiz RN Amended: Links added.
[2019-01-03 07:16] LABS: ALBUMIN 2.8 G/DL (3.4-5.0); ANION GAP 9 (8-16); BLOOD UREA NITROGEN 27 MG/DL (7-18); BUN/CREATININE RATIO 22.5 (6.6-38.0); CALCIUM 8.8 MG/DL (8.5-10.1); CHLORIDE 102 MMOL/L (99-107); GLUCOSE 278 MG/DL (70-104); POTASSIUM 4.9 MMOL/L (3.5-5.1); SODIUM 138 MMOL/L (135-145); eGFR 46 ML/MIN
[2019-01-03] MEDS: K and/or MAG REPLACEMENT MC SCH (08:00)
[2019-01-03] MEDS: metoprolol tartrate 25mg tablet PO SCH ×2 (08:00→20:56)
[2019-01-03] MEDS: lactobacillus rhamnosus 10,000 MMU CELLS/CAPSULE PO SCH ×2 (08:24→20:56)
[2019-01-03] MEDS: montelukast 10mg tablet PO SCH (08:24)
[2019-01-03] MEDS: atorvastatin 20mg tablet PO SCH (08:24)
[2019-01-03] MEDS: ferrous sulfate 325mg tablet PO SCH (08:25)
[2019-01-03] MEDS: clopidogrel 75mg tablet PO SCH (08:25)
[2019-01-03] MEDS: pantoprazole 40mg Tablet.DR PO SCH (08:25)
[2019-01-03] MEDS: apixaban 5mg tablet PO SCH ×2 (08:25→20:56)
[2019-01-03] MEDS: morphine ER 30mg tablet PO SCH ×2 (08:25→20:56)
[2019-01-03] MEDS: potassium chloride 8mEq ER tablet PO SCH (08:25)
[2019-01-03] MEDS: FLUoxetine 20mg capsule PO SCH (08:25)
[2019-01-03] MEDS: furosemide 20MG tablet PO SCH ×2 (08:25→20:57)
[2019-01-03] MEDS: lamoTRIgine 100mg tablet PO SCH (08:26)
[2019-01-03] MEDS: methylPREDNISolone sod succ/PF 40mg inj. IV SCH ×3 (08:26→23:38)
[2019-01-03] MEDS ORDERED: dextrose 50%-water 50ml dispensing syringe IV PRN ×2 (09:30)
[2019-01-03] MEDS ORDERED: MESSAGE TO PHARMACY PO ONE (09:30)
[2019-01-03] MEDS ORDERED: glucagon, human recombinant 1mg kit SUBCUT PRN (09:30)
[2019-01-03] MEDS ORDERED: dextrose ORAL solution 15 GM/59 ML bottle PO PRN ×2 (09:30)
[2019-01-03 10:00] VITALS: BP 112/56
[2019-01-03] MEDS: insulin Lispro (HumaLOG) vial - multi-dose SQ SCH ×4 (10:46→21:08)
[2019-01-03] MEDS: HYDROcodone/acetaminophen 10/325mg tab PO PRN ×2 (10:47→17:37)
[2019-01-03 11:24] LABS: HEMOGLOBIN A1C 7.2 % (4.5-6.2)
--- NOTE | 2019-01-03 15:50 | NUR ---
Malnutrition/DM Consults: A1C 7.2. Pt refused DM ed during RD visit. Pt has no visible signs of muscle/fat wasting, no edema, PO 100% meals increased from admit meeting needs. Does not meet malnutrition criteria at this time. Addendum: 01/03/19 at [address] Amended: Links added.
[2019-01-03 18:00] VITALS: BP 109/44
--- NOTE | 2019-01-03 18:16 | NUR ---
Problems reprioritized. Patient report given, questions answered & plan of care reviewed with SHELDON Villatoro. Addendum: 01/03/19 at 1816 by Sharda Ortiz RN Amended: Links added.
--- NOTE | 2019-01-03 18:30 | NUR ---
Patient in room ORTHO 4012. I have received report from SHELDON Robin and had the opportunity to ask questions and assume patient care.
[2019-01-03 20:57] VITALS: BP 126/52
[2019-01-03] MEDS: insulin glargine (Lantus) pen - multi-dose SQ SCH (21:06)
[2019-01-03 22:00] VITALS: BP 126/54
[2019-01-03] MEDS: levoFLOXACIN-Levaquin 500mg/D5 100 ML IV SCH (23:38)
[2019-01-04] MEDS: ipratropium/albuterol 3ml nebule NEB SCH ×6 (02:42→23:00)
[2019-01-04] MEDS: HYDROcodone/acetaminophen 10/325mg tab PO PRN (04:34)
[2019-01-04 06:00] VITALS: BP 131/56
[2019-01-04 06:15] VITALS: BP 131/56
--- NOTE | 2019-01-04 06:23 | NUR ---
Problems reprioritized. Patient report given, questions answered & plan of care reviewed with SHELDON Casiano.
--- NOTE | 2019-01-04 06:30 | NUR ---
I have received patient report from Shauna CHUNG
[2019-01-04 07:22] LABS: BASOPHILS % (AUTO) 0.5 % (0-1); EOSINOPHILS % (AUTO) 0 % (0-6); HEMOGLOBIN 14.5 g/dl (12.0-16.0); LYMPHOCYTES # (AUTO) 0.8 X10'3 (1.1-4.8); LYMPHOCYTES % (AUTO) 13.2 % (21-51); MEAN CORPUSCULAR HEMOGLOBIN 30.1 PG (27.0-31.0); MEAN CORPUSCULAR HGB CONC 33.1 g/dL (33.0-36.5); MEAN CORPUSCULAR VOLUME 90.9 FL (78-98); MEAN PLATELET VOLUME 8.2 FL (7.4-10.4); MONOCYTES # (AUTO) 0.2 X10'3 (0-0.9); MONOCYTES % (AUTO) 3.5 % (2-12); NEUTROPHILS # (AUTO) 5.3 X10'3 (1.8-7.7); NEUTROPHILS % (AUTO) 82.8 % (42-75); PLATELET COUNT 226 X10'3 (140-440); RED BLOOD COUNT 4.83 X10'6 (4.20-5.60); RED CELL DISTRIBUTION WIDTH 13.9 % (11.5-14.5); WHITE BLOOD COUNT 6.4 X10'3 (4.5-11.0)
[2019-01-04] MEDS: methylPREDNISolone sod succ/PF 40mg inj. IV SCH ×3 (07:22→23:55)
[2019-01-04] MEDS: metoprolol tartrate 25mg tablet PO SCH ×2 (07:28→21:01)
[2019-01-04] MEDS: lactobacillus rhamnosus 10,000 MMU CELLS/CAPSULE PO SCH ×2 (07:29→21:00)
[2019-01-04] MEDS: FLUoxetine 20mg capsule PO SCH (07:29)
[2019-01-04] MEDS: montelukast 10mg tablet PO SCH (07:29)
[2019-01-04] MEDS: clopidogrel 75mg tablet PO SCH (07:29)
[2019-01-04] MEDS: morphine ER 30mg tablet PO SCH ×2 (07:29→21:00)
[2019-01-04] MEDS: apixaban 5mg tablet PO SCH ×2 (07:29→21:01)
[2019-01-04] MEDS: ferrous sulfate 325mg tablet PO SCH (07:29)
[2019-01-04] MEDS: furosemide 20MG tablet PO SCH ×2 (07:30→21:01)
[2019-01-04] MEDS: pantoprazole 40mg Tablet.DR PO SCH (07:30)
[2019-01-04] MEDS: atorvastatin 20mg tablet PO SCH (07:30)
[2019-01-04] MEDS: potassium chloride 8mEq ER tablet PO SCH (07:30)
[2019-01-04] MEDS: lamoTRIgine 100mg tablet PO SCH (07:30)
[2019-01-04 07:35] LABS: ALBUMIN 3.1 G/DL (3.4-5.0); ANION GAP 6 (8-16); BLOOD UREA NITROGEN 24 MG/DL (7-18); BUN/CREATININE RATIO 21.6 (6.6-38.0); CALCIUM 9.2 MG/DL (8.5-10.1); CHLORIDE 102 MMOL/L (99-107); CREATININE 1.11 MG/DL (0.40-0.90); GLUCOSE 293 MG/DL (70-104); MAGNESIUM 1.8 MG/DL (1.5-2.4); POTASSIUM 5.6 MMOL/L (3.5-5.1); SODIUM 137 MMOL/L (135-145); eGFR 51 ML/MIN
[2019-01-04] MEDS: K and/or MAG REPLACEMENT MC SCH (08:00)
[2019-01-04] MEDS: insulin Lispro (HumaLOG) vial - multi-dose SQ SCH ×3 (08:42→19:01)
[2019-01-04 10:00] VITALS: BP 140/68
[2019-01-04] MEDS ORDERED: FLU VACC QS2019-20 36MOS UP/PF 60 MCG/0.5 ML SYRINGE IMVAC ONE (10:00)
--- NOTE | 2019-01-04 11:07 | NUR ---
Student documentation: I have reviewed all interventions, assessments performed and [facility] Student Medication Administration: For this medication-pass time frame, all medication were reviewed, dispensed, administered and documented per hospital policy by [facility].
--- NOTE | 2019-01-04 11:21 | NUR ---
I paged dr. arciniega about high potassium 5.6. waiting for response.
[2019-01-04] MEDS ORDERED: sodium polystyrene sulfonate 15gm/60ml oral suspension PO ONE (11:25)
--- NOTE | 2019-01-04 12:00 | NUR ---
I paged Dr. Callejas about high K he ordered kayexalate for patient.
--- NOTE | 2019-01-04 14:44 | NUR ---
DM Consult: Already addressed in prior DM note; see below. Addendum: 01/04/19 at [address] Amended: Links added.
--- NOTE | 2019-01-04 15:12 | NUR ---
Patient report given to Courtney bowen RN
--- NOTE | 2019-01-04 15:33 | NUR ---
ASSUMED CARE OF PATIENT FROM MART RN, NO QUESTIONS. WENT AND INTRODUCED MYSELF, PATIENT SITTING UP AT BEDSIDE GETTING BREATHING TX, PATIENT STATES NO NEEDS AT THIS TIME. I HAVE REVIEWED AND AGREE WITH PRIOR ASSESSMENT OF PATIENT.
[2019-01-04 18:35] VITALS: BP 130/67
[2019-01-04 18:37] VITALS: BP 130/67
[2019-01-04] MEDS: insulin glargine (Lantus) pen - multi-dose SQ SCH (21:09)
[2019-01-04 21:53] VITALS: BP 139/64
[2019-01-04] MEDS: levoFLOXACIN-Levaquin 500mg/D5 100 ML IV SCH (23:55)
[2019-01-05 06:00] VITALS: BP 128/51
[2019-01-05] MEDS: HYDROcodone/acetaminophen 10/325mg tab PO PRN (06:00)
--- NOTE | 2019-01-05 06:10 | NUR ---
Patient in room ORTHO 4012. I have received report from Annia/Julieth Yanez and had the opportunity to ask questions and assume patient care.
[2019-01-05 06:12] LABS: BASOPHILS % (AUTO) 0.1 % (0-1); EOSINOPHILS % (AUTO) 0 % (0-6); HEMATOCRIT 43.6 % (35.0-45.0); HEMOGLOBIN 14.4 g/dl (12.0-16.0); LYMPHOCYTES # (AUTO) 0.9 X10'3 (1.1-4.8); LYMPHOCYTES % (AUTO) 14.6 % (21-51); MEAN CORPUSCULAR HEMOGLOBIN 30.2 PG (27.0-31.0); MEAN CORPUSCULAR VOLUME 91.5 FL (78-98); MEAN PLATELET VOLUME 8.4 FL (7.4-10.4); MONOCYTES # (AUTO) 0.2 X10'3 (0-0.9); MONOCYTES % (AUTO) 2.6 % (2-12); NEUTROPHILS # (AUTO) 5.1 X10'3 (1.8-7.7); NEUTROPHILS % (AUTO) 82.7 % (42-75); PLATELET COUNT 226 X10'3 (140-440); RED BLOOD COUNT 4.76 X10'6 (4.20-5.60); RED CELL DISTRIBUTION WIDTH 14.2 % (11.5-14.5); WHITE BLOOD COUNT 6.2 X10'3 (4.5-11.0)
[2019-01-05] MEDS: ipratropium/albuterol 3ml nebule NEB SCH ×3 (07:04→15:00)
[2019-01-05 07:18] LABS: ANION GAP 7 (8-16); BLOOD UREA NITROGEN 26 MG/DL (7-18); BUN/CREATININE RATIO 22.8 (6.6-38.0); CHLORIDE 100 MMOL/L (99-107); CREATININE 1.14 MG/DL (0.40-0.90); GLUCOSE 286 MG/DL (70-104); MAGNESIUM 1.7 MG/DL (1.5-2.4); SODIUM 137 MMOL/L (135-145); TOTAL CARBON DIOXIDE 29.9 MMOL/L (24-32); eGFR 49 ML/MIN
[2019-01-05] MEDS: K and/or MAG REPLACEMENT MC SCH (08:00)
[2019-01-05] MEDS: insulin Lispro (HumaLOG) vial - multi-dose SQ SCH ×2 (09:25→13:57)
[2019-01-05] MEDS: lactobacillus rhamnosus 10,000 MMU CELLS/CAPSULE PO SCH (09:30)
[2019-01-05] MEDS: methylPREDNISolone sod succ/PF 40mg inj. IV SCH ×2 (09:30→16:13)
[2019-01-05] MEDS: ferrous sulfate 325mg tablet PO SCH (09:30)
[2019-01-05] MEDS: apixaban 5mg tablet PO SCH (09:30)
[2019-01-05] MEDS: lamoTRIgine 100mg tablet PO SCH (09:31)
[2019-01-05] MEDS: furosemide 20MG tablet PO SCH (09:31)
[2019-01-05] MEDS: atorvastatin 20mg tablet PO SCH (09:31)
[2019-01-05] MEDS: metoprolol tartrate 25mg tablet PO SCH (09:33)
[2019-01-05] MEDS: morphine ER 30mg tablet PO SCH (09:34)
[2019-01-05] MEDS: pantoprazole 40mg Tablet.DR PO SCH (09:34)
[2019-01-05] MEDS: clopidogrel 75mg tablet PO SCH (09:34)
[2019-01-05] MEDS: montelukast 10mg tablet PO SCH (09:35)
[2019-01-05] MEDS: FLUoxetine 20mg capsule PO SCH (09:35)
[2019-01-05 10:00] VITALS: BP 139/68
[2019-01-05] MEDS ORDERED: levoFLOXACIN 500mg tablet PO SCH (11:00)
--- NOTE | 2019-01-05 13:29 | NUR ---
PAGER ID: [phone] MESSAGE: Ms. Edith Meade in [phone] would like to discharge. Please advise. Thank you Meli
[2019-01-05] MEDS ORDERED: LEVO500T89 PO (15:04)
[2019-01-05] MEDS ORDERED: PRED20TA PO (15:04)
--- NOTE | 2019-01-05 16:30 | NUR ---
Reviewed discharge instructions with pt. Pt verbalized understanding. Pt is alert, oriented and does not have c/o pain or discomfort at thsi time. All of pt's belongings were returned to pt. Pt was wheeled downstairs to be driven home by a local transport company.
[2019-01-05] MEDS ORDERED: furosemide 20 MG/2 ML vial IV SCH (20:00)
== END 2019-01-05 16:30 | disposition home or self-care (01) | DRG 133 ==
LOC: ER 00:13 → ED HOLD 02:42 → EDBEDREQ 03:57 → CMPBEDREQ 04:17 → ORTHO 4S 04:37
PROVIDERS: ADMIT Hospitalist; ATTEND Family Medicine
DX: J96.21 Acute and chronic respiratory failure with hypoxia (principal); N17.9 Acute kidney failure, unspecified; E11.42 Type 2 diabetes mellitus with diabetic polyneuropathy; E87.5 Hyperkalemia; I50.9 Heart failure, unspecified; E78.5 Hyperlipidemia, unspecified; F17.210 Nicotine dependence, cigarettes, uncomplicated; G89.4 Chronic pain syndrome; I25.10 Atherosclerotic heart disease of native coronary artery without angina pectoris; I48.91 Unspecified atrial fibrillation; J20.9 Acute bronchitis, unspecified; F12.90 Cannabis use, unspecified, uncomplicated; M19.90 Unspecified osteoarthritis, unspecified site; F41.8 Other specified anxiety disorders; J44.0 Chronic obstructive pulmonary disease with (acute) lower respiratory infection; J44.1 Chronic obstructive pulmonary disease with (acute) exacerbation; K59.09 Other constipation; M79.7 Fibromyalgia; Z59.0 Homelessness; Z81.8 Family history of other mental and behavioral disorders; Z79.01 Long term (current) use of anticoagulants; Z99.81 Dependence on supplemental oxygen; Z88.5 Allergy status to narcotic agent; Z88.8 Allergy status to other drugs, medicaments and biological substances; Z90.49 Acquired absence of other specified parts of digestive tract; Z95.5 Presence of coronary angioplasty implant and graft; Z79.899 Other long term (current) drug therapy; Z79.82 Long term (current) use of aspirin
CPT/HCPCS: 36415; 71045; 80048; 80053; 82948; 83036; 83605; 83735; 83880; 84145; 84484; 85025; 87040; 87081; 93005; 94640; 94760; 96365; 99285; G0378; J1815; J1956; J2920; J2930; Q2037

== ENCOUNTER 2019-03-12 14:59 | Inpatient (IN) | payer MEDICAID ==
[~2019-03-12] VITALS: Ht 162.6 cm; Wt 102.0 kg
[~2019-03-12 14:59] MED LIST changes: -ASPI-1130 PO; -DILT180C89 PO; +LEVO500T89 PO; -LEVO750T46 PO; +LINA145C PO; +METF500T PO; +PANT40TA4 PO; -POTA8TAB8 PO; -PRED10TA PO
[2019-03-12] MEDS ORDERED: ipratropium/albuterol 3ml nebule NEB ONE (15:35)
[2019-03-12 15:56] LABS: BASOPHILS % (AUTO) 0.3 % (0-1); EOSINOPHILS % (AUTO) 0.1 % (0-6); HEMATOCRIT 46.8 % (35.0-45.0); HEMOGLOBIN 15.7 g/dl (12.0-16.0); LYMPHOCYTES # (AUTO) 1.1 X10'3 (1.1-4.8); MEAN CORPUSCULAR HGB CONC 33.5 g/dL (33.0-36.5); MEAN CORPUSCULAR VOLUME 89.5 FL (78-98); MEAN PLATELET VOLUME 8.9 FL (7.4-10.4); MONOCYTES # (AUTO) 0.7 X10'3 (0-0.9); MONOCYTES % (AUTO) 11.6 % (2-12); NEUTROPHILS # (AUTO) 4.4 X10'3 (1.8-7.7); PLATELET COUNT 164 X10'3 (140-440); RED BLOOD COUNT 5.23 X10'6 (4.20-5.60); RED CELL DISTRIBUTION WIDTH 15.1 % (11.5-14.5); WHITE BLOOD COUNT 6.3 X10'3 (4.5-11.0)
[2019-03-12] MEDS ORDERED: predniSONE 20 mg tablet PO ONE (16:10)
[2019-03-12 16:12] LABS: ALANINE AMINOTRANSFERASE 32 U/L (12-78); ALBUMIN 3.4 G/DL (3.4-5.0); ALBUMIN/GLOBULIN RATIO 0.9 (1.1-1.5); ALKALINE PHOSPHATASE 116 IU/L (46-116); ANION GAP 6 (8-16); ASPARTATE AMINO TRANSFERASE 17 U/L (10-37); BILIRUBIN,TOTAL 0.5 MG/DL (0.1-1.0); BLOOD UREA NITROGEN 43 MG/DL (7-18); BUN/CREATININE RATIO 31.6 (6.6-38.0); CALCIUM 8.8 MG/DL (8.5-10.1); CHLORIDE 98 MMOL/L (99-107); CREATININE 1.36 MG/DL (0.40-0.90); GLUCOSE 162 MG/DL (70-104); POTASSIUM 5.1 MMOL/L (3.5-5.1); SODIUM 136 MMOL/L (135-145); TOTAL CARBON DIOXIDE 31.7 MMOL/L (24-32); TOTAL PROTEIN 7.3 G/DL (6.4-8.2); eGFR 40 ML/MIN
[2019-03-12] MEDS ORDERED: acetaminophen 325mg tablet PO ONE (16:20)
[2019-03-12] MEDS ORDERED: ondansetron/PF 4mg/2ml inj IV ONE (16:20)
[2019-03-12] MEDS ORDERED: normal saline 1000ML IV soln IVB ONE (17:15)
[2019-03-12] MEDS ORDERED: heparin 25,000 UNIT/250ml bag 250 ML IV SCH (18:12)
[2019-03-12] MEDS ORDERED: acetaminophen 650mg rectal suppository RC PRN (18:15)
[2019-03-12] MEDS ORDERED: morphine 2 MG/ML inj. syringe IV PRN (18:15)
[2019-03-12] MEDS ORDERED: acetaminophen 325mg tablet PO PRN ×2 (18:15)
[2019-03-12] MEDS ORDERED: diphenhydrAMINE 50 mg/ml inj IV PRN (18:15)
[2019-03-12] MEDS ORDERED: HYDROcodone/acetaminophen 5mg/325mg tablet PO PRN (18:15)
[2019-03-12] MEDS ORDERED: diphenhydrAMINE 25mg capsule PO PRN (18:15)
[2019-03-12] MEDS ORDERED: magnesium Cl slow-release 64mg tablet PO PRN (18:15)
[2019-03-12] MEDS ORDERED: glucagon, human recombinant 1mg kit SUBCUT PRN (18:15)
[2019-03-12] MEDS ORDERED: magnesium hydroxide 30ml (MOM) UD suspension PO PRN (18:15)
[2019-03-12] MEDS ORDERED: mag hydrox/Alum hydrox/simeth 30ml oral suspension PO PRN (18:15)
[2019-03-12] MEDS ORDERED: methylPREDNISolone sod succ 125mg/2ml vial IV ONE (18:15)
[2019-03-12] MEDS ORDERED: dextrose 50%-water 50ml dispensing syringe IV PRN ×2 (18:15)
[2019-03-12] MEDS ORDERED: magnesium 4gm in 100ml NS 100 ML IV PRN (18:15)
[2019-03-12] MEDS ORDERED: heparin 10,000 units/1 ML INJ IV ONE (18:15)
[2019-03-12] MEDS ORDERED: bisacodyl 10mg suppository rectal RC PRN (18:15)
[2019-03-12] MEDS ORDERED: potassium Cl 20 mEq SR tablet PO PRN ×2 (18:15)
[2019-03-12] MEDS ORDERED: ondansetron/PF 4mg/2ml inj IV PRN (18:15)
[2019-03-12] MEDS ORDERED: heparin 10,000 units/1 ML INJ IV PRN (18:15)
[2019-03-12] MEDS ORDERED: MESSAGE TO PHARMACY PO ONE (18:15)
[2019-03-12] MEDS ORDERED: dextrose ORAL solution 15 GM/59 ML bottle PO PRN ×2 (18:15)
[2019-03-12] MEDS ORDERED: potassium CL 10mEq/100ml bag 100 ML IV PRN ×2 (18:15)
[2019-03-12] MEDS ORDERED: magnesium 2GM in 50ml NS 50 ML IV PRN (18:15)
[2019-03-12] MEDS ORDERED: iohexol 350MG/ML 100ml bottle IV ONE (18:37)
[2019-03-12 18:46] LABS: PARTIAL THROMBOPLASTIN TIME 27 SECONDS (22-32)
[2019-03-12 18:49] LABS: HEMOGLOBIN A1C 7.5 % (4.5-6.2)
--- NOTE | 2019-03-12 18:50 | NUR ---
TO CT SCAN AT THIS TIME.
[2019-03-12 18:52] LABS: ETHANOL < 0.010 GM/DL (0.0-0.010)
--- NOTE | 2019-03-12 19:21 | NUR ---
ASKED TO REVIEW CHART BY NURSING PALAEONTOLOGIST FOR POSSIBLE ADMIT.
[2019-03-12] MEDS: normal saline 1000ml 1,000 ML IV SCH (19:28)
[2019-03-12] MEDS: CefTRIAXone/D5W-Rocephin 1gm 50 ML IV SCH (19:29)
[2019-03-12] MEDS: morphine 2 MG/ML inj. syringe IV PRN (19:34)
[2019-03-12] MEDS: azithromycin 250mg tablet PO SCH (19:35)
[2019-03-12] MEDS: K and/or MAG REPLACEMENT MC SCH (20:00)
[2019-03-12 20:10] LABS: CLARITY,URINE SLIGHTLY CLOUDY (Clear); COLOR,URINE YELLOW (Yellow); GLUCOSE, URINE NEGATIVE (Neg); KETONES,URINE NEGATIVE (Neg); LEUKOCYTE ESTERASE ,URINE NEGATIVE (Neg); NITRITES, URINE NEGATIVE (Neg); OCCULT BLOOD,URINE NEGATIVE (Neg); PH,URINE 5.5 (4.8-8.0); PROTEIN,URINE TRACE mg/dl (Neg); UROBILINOGEN,URINE 0.2 E.U/dL (0.2-1.0)
[2019-03-12 20:13] LABS: UA COLLECTION TYPE STRAIGHT CATH
[2019-03-12] MEDS: ipratropium/albuterol 3ml nebule NEB SCH ×3 (20:19→23:08)
[2019-03-12 20:20] LABS: BACTERIA,URINE FEW /HPF (Neg); MUCUS STRANDS FEW /LPF (Neg); RBC,URINE 0-2 /HPF (0-2); SQUAMOUS EPITHELIAL CELL,UR FEW /LPF (FEW); WBC,URINE 0-4 /HPF (0-4)
[2019-03-12 20:22] LABS: URINE AMPHETAMINE SCREEN NEGATIVE (Neg); URINE BARBITUATE SCREEN NEGATIVE (Neg); URINE BENZODIAZEPINES SCREEN NEGATIVE (Neg); URINE CANNABINOID SCREEN NEGATIVE (Neg); URINE COCAINE SCREEN NEGATIVE (Neg); URINE METHADONE SCREEN NEGATIVE (Neg); URINE OPIATE SCREEN POSITIVE (Neg); URINE PHENCYCLIDINE SCREEN NEGATIVE (Neg)
--- NOTE | 2019-03-12 20:48 | NUR ---
Page to Echo: 311 pt Edith has active order for Echo. Thank you.
[2019-03-12] MEDS ORDERED: temazepam 15mg capsule PO PRN (21:00)
--- NOTE | 2019-03-12 21:00 | NUR ---
received report from SHELDON Pascual (charge).
[2019-03-12 21:15] VITALS: BP 120/66
--- NOTE | 2019-03-12 21:15 | NUR ---
pt arrived on unit 2114 by sean. pt was able to ambulate from [facility] to bed. pt usually uses motorized scooter. pt SOB currently on 5L NC. will continue to monitor.
--- NOTE | 2019-03-12 22:29 | NUR ---
PAGER ID: [phone] MESSAGE: 311 pt YUNG. Med rec completed on nurses end and ready for MD review. Thank you.
[2019-03-12] MEDS: methylPREDNISolone sod succ 125mg/2ml vial IV SCH (22:42)
[2019-03-12] MEDS: insulin glargine (Lantus) pen - multi-dose SQ SCH (23:14)
[2019-03-12] MEDS ORDERED: tizanidine 4mg tablet PO PRN (23:50)
[2019-03-13 01:15] VITALS: BP 128/54
[2019-03-13] MEDS: methylPREDNISolone sod succ 125mg/2ml vial IV SCH ×4 (02:00→20:44)
[2019-03-13] MEDS ORDERED: ipratropium 0.5 MG/2.5ML nebule IH SCH (03:00)
[2019-03-13] MEDS: ipratropium/albuterol 3ml nebule NEB SCH ×6 (03:11→23:00)
[2019-03-13 04:04] LABS: BASOPHILS % (AUTO) 0.2 % (0-1); EOSINOPHILS % (AUTO) 0.1 % (0-6); HEMATOCRIT 45.2 % (35.0-45.0); HEMOGLOBIN 14.9 g/dl (12.0-16.0); LYMPHOCYTES # (AUTO) 0.6 X10'3 (1.1-4.8); LYMPHOCYTES % (AUTO) 15.8 % (21-51); MEAN CORPUSCULAR HEMOGLOBIN 29.5 PG (27.0-31.0); MEAN CORPUSCULAR VOLUME 89.4 FL (78-98); MEAN PLATELET VOLUME 8.7 FL (7.4-10.4); MONOCYTES # (AUTO) 0.1 X10'3 (0-0.9); MONOCYTES % (AUTO) 2.3 % (2-12); NEUTROPHILS % (AUTO) 81.6 % (42-75); PLATELET COUNT 149 X10'3 (140-440); RED BLOOD COUNT 5.06 X10'6 (4.20-5.60); RED CELL DISTRIBUTION WIDTH 14.8 % (11.5-14.5); WHITE BLOOD COUNT 3.7 X10'3 (4.5-11.0)
[2019-03-13 04:18] LABS: ALANINE AMINOTRANSFERASE 26 U/L (12-78); ALBUMIN/GLOBULIN RATIO 0.8 (1.1-1.5); ALKALINE PHOSPHATASE 101 IU/L (46-116); ANION GAP 5 (8-16); ASPARTATE AMINO TRANSFERASE 13 U/L (10-37); BILIRUBIN,TOTAL 0.3 MG/DL (0.1-1.0); BLOOD UREA NITROGEN 37 MG/DL (7-18); BUN/CREATININE RATIO 31.9 (6.6-38.0); CALCIUM 8.6 MG/DL (8.5-10.1); CHLORIDE 100 MMOL/L (99-107); CREATININE 1.16 MG/DL (0.40-0.90); GLUCOSE 262 MG/DL (70-104); POTASSIUM 5.2 MMOL/L (3.5-5.1); SODIUM 137 MMOL/L (135-145); TOTAL PROTEIN 6.6 G/DL (6.4-8.2); eGFR 48 ML/MIN
[2019-03-13 04:21] LABS: CHOL/HDL RATIO 4.2 (0.00-4.99); CHOLESTEROL 125 MG/DL (0-200); HDL CHOLESTEROL 30 MG/DL (35-60); LDL CHOLESTEROL 77 MG/DL (50-100); MAGNESIUM 1.9 MG/DL (1.5-2.4); PHOSPHORUS 4.2 MG/DL (2.3-4.5); TRIGLYCERIDES 144 MG/DL (20-135)
--- NOTE | 2019-03-13 05:30 | NUR ---
pt has moist red skin on groin area and under breast. pt refused nystatin powder at this time.
[2019-03-13 06:00] VITALS: BP 138/72
--- NOTE | 2019-03-13 06:15 | NUR ---
Patient in room MED 311. I have received report from SHELDON Irwin and had the opportunity to ask questions and assume patient care.
--- NOTE | 2019-03-13 06:20 | NUR ---
gave report to SHELDON Zimmerman
--- NOTE | 2019-03-13 06:32 | NUR ---
pt complained about COELLO. spoke to Dr. Walker. aware of pt dark green emesis x2. no vision changes. vitals WNL. pt received requested tylenol, but was not very effective. pt received zofran. pt stated stronger drugs such as norco as ordered does not help, but stated dilaudid helped in the past. pt positive for opiates. aware. no new orders at the moment. info passed to day shift RN.
[2019-03-13] MEDS: morphine 2 MG/ML inj. syringe IV PRN ×2 (07:05→14:16)
[2019-03-13] MEDS: K and/or MAG REPLACEMENT MC SCH ×2 (08:00→20:00)
[2019-03-13] MEDS: CefTRIAXone/D5W-Rocephin 1gm 50 ML IV SCH (08:18)
[2019-03-13] MEDS: azithromycin 250mg tablet PO SCH (08:18)
[2019-03-13] MEDS: metoprolol tartrate 25mg tablet PO SCH ×2 (08:19→20:43)
[2019-03-13] MEDS: pantoprazole 40mg Tablet.DR PO SCH (08:19)
[2019-03-13] MEDS: FLUoxetine 20mg capsule PO SCH (08:20)
[2019-03-13] MEDS: atorvastatin 20mg tablet PO SCH (08:20)
[2019-03-13] MEDS: lamoTRIgine 100mg tablet PO SCH (08:20)
[2019-03-13] MEDS: montelukast 10mg tablet PO SCH (08:20)
[2019-03-13] MEDS: clopidogrel 75mg tablet PO SCH (08:20)
[2019-03-13] MEDS: ferrous sulfate 325mg tablet PO SCH (08:20)
[2019-03-13] MEDS: nystatin 15 GM powder TP SCH ×3 (08:21→20:43)
[2019-03-13] MEDS: normal saline 1000ml 1,000 ML IV SCH ×2 (08:21→20:54)
[2019-03-13] MEDS: apixaban 5mg tablet PO SCH ×2 (08:22→20:43)
[2019-03-13] MEDS: insulin Lispro (HumaLOG) vial - multi-dose SQ SCH ×3 (09:56→18:54)
[2019-03-13 11:00] VITALS: BP 125/62
--- NOTE | 2019-03-13 12:21 | NUR ---
DM Consult: A1C 7.5. pt seen by RD for written/verbal DM ed w/ RD contact information provided. Pt reports nausea at this time and cannot stay awake during RD visit. Written ed w/ RD contact information left at bedside; will need reinforcement once more appropriate prior to d/c. Addendum: 03/13/19 at [address] Amended: Links added.
[2019-03-13 15:00] VITALS: BP 132/76
--- NOTE | 2019-03-13 16:46 | NUR ---
PAGE RT: Patient Alice Sharma Rm# [phone]. Patient has scheduled breathing treatment at 1500. Thank you. TeresaRN #[id number]
[2019-03-13 18:00] VITALS: BP 151/67
--- NOTE | 2019-03-13 18:45 | NUR ---
Patient in room MED 308. I have received report from Elsie-SHELDON, and had the opportunity to ask questions and assume patient care.
--- NOTE | 2019-03-13 19:20 | NUR ---
Problems reprioritized. Patient report given, questions answered & plan of care reviewed with SHELDON Dickson.
[2019-03-13] MEDS: lisinopril 20mg tablet PO SCH (20:43)
[2019-03-13] MEDS: HYDROcodone/acetaminophen 10/325mg tab PO PRN (20:45)
[2019-03-13] MEDS: insulin glargine (Lantus) pen - multi-dose SQ SCH (20:54)
[2019-03-13 22:00] VITALS: BP 151/66
[2019-03-14] MEDS: HYDROcodone/acetaminophen 10/325mg tab PO PRN (01:11)
[2019-03-14] MEDS: methylPREDNISolone sod succ 125mg/2ml vial IV SCH ×4 (01:11→22:03)
[2019-03-14] MEDS: ipratropium/albuterol 3ml nebule NEB SCH ×6 (03:00→23:09)
[2019-03-14 03:38] LABS: BASOPHILS % (AUTO) 0.1 % (0-1); EOSINOPHILS % (AUTO) 0 % (0-6); HEMATOCRIT 43.3 % (35.0-45.0); HEMOGLOBIN 14.3 g/dl (12.0-16.0); LYMPHOCYTES # (AUTO) 1.1 X10'3 (1.1-4.8); LYMPHOCYTES % (AUTO) 20.2 % (21-51); MEAN CORPUSCULAR HEMOGLOBIN 29.5 PG (27.0-31.0); MEAN CORPUSCULAR VOLUME 89.4 FL (78-98); MEAN PLATELET VOLUME 8.8 FL (7.4-10.4); MONOCYTES # (AUTO) 0.3 X10'3 (0-0.9); MONOCYTES % (AUTO) 6.4 % (2-12); NEUTROPHILS # (AUTO) 3.8 X10'3 (1.8-7.7); NEUTROPHILS % (AUTO) 73.3 % (42-75); PLATELET COUNT 165 X10'3 (140-440); RED BLOOD COUNT 4.84 X10'6 (4.20-5.60); RED CELL DISTRIBUTION WIDTH 14.7 % (11.5-14.5); WHITE BLOOD COUNT 5.2 X10'3 (4.5-11.0)
[2019-03-14 03:49] LABS: ALANINE AMINOTRANSFERASE 24 U/L (12-78); ALBUMIN 2.9 G/DL (3.4-5.0); ALBUMIN/GLOBULIN RATIO 0.8 (1.1-1.5); ALKALINE PHOSPHATASE 85 IU/L (46-116); ANION GAP 9 (8-16); ASPARTATE AMINO TRANSFERASE 9 U/L (10-37); BILIRUBIN,TOTAL 0.2 MG/DL (0.1-1.0); BLOOD UREA NITROGEN 30 MG/DL (7-18); BUN/CREATININE RATIO 33.7 (6.6-38.0); CALCIUM 8.9 MG/DL (8.5-10.1); CHLORIDE 104 MMOL/L (99-107); CREATININE 0.89 MG/DL (0.40-0.90); GLUCOSE 191 MG/DL (70-104); MAGNESIUM 1.9 MG/DL (1.5-2.4); PHOSPHORUS 2.9 MG/DL (2.3-4.5); SODIUM 140 MMOL/L (135-145); TOTAL CARBON DIOXIDE 26.8 MMOL/L (24-32); TOTAL PROTEIN 6.5 G/DL (6.4-8.2); eGFR 66 ML/MIN
[2019-03-14 04:00] VITALS: BP 144/65
[2019-03-14 06:00] VITALS: BP 160/84
--- NOTE | 2019-03-14 06:32 | NUR ---
Problems reprioritized. Patient report given to Madonna, questions answered & plan of care reviewed with .
--- NOTE | 2019-03-14 06:44 | NUR ---
Patient in room MED 311. I have received report from SHELDON Dickson and had the opportunity to ask questions and assume patient care.
[2019-03-14] MEDS: CefTRIAXone/D5W-Rocephin 1gm 50 ML IV SCH (07:38)
[2019-03-14] MEDS: pantoprazole 40mg Tablet.DR PO SCH (07:39)
[2019-03-14] MEDS: FLUoxetine 20mg capsule PO SCH (07:44)
[2019-03-14] MEDS: montelukast 10mg tablet PO SCH (07:44)
[2019-03-14] MEDS: apixaban 5mg tablet PO SCH ×2 (07:44→22:02)
[2019-03-14] MEDS: clopidogrel 75mg tablet PO SCH (07:44)
[2019-03-14] MEDS: atorvastatin 20mg tablet PO SCH (07:44)
[2019-03-14] MEDS: azithromycin 250mg tablet PO SCH (07:45)
[2019-03-14] MEDS: lamoTRIgine 100mg tablet PO SCH (07:45)
[2019-03-14] MEDS: nystatin 15 GM powder TP SCH ×3 (07:45→22:03)
[2019-03-14] MEDS: ferrous sulfate 325mg tablet PO SCH (07:45)
[2019-03-14] MEDS: metoprolol tartrate 25mg tablet PO SCH ×2 (07:56→20:00)
[2019-03-14] MEDS: K and/or MAG REPLACEMENT MC SCH ×2 (08:00→20:00)
[2019-03-14] MEDS: insulin Lispro (HumaLOG) vial - multi-dose SQ SCH ×3 (09:30→19:03)
[2019-03-14] MEDS: normal saline 1000ml 1,000 ML IV SCH ×2 (09:35→22:08)
[2019-03-14 12:09] VITALS: BP 135/58
[2019-03-14] MEDS: morphine ER 30mg tablet PO SCH ×2 (13:03→23:36)
--- NOTE | 2019-03-14 14:10 | NUR ---
F/u: Pt visited again by GIOVANNI but resting and still unable to wake today. Written ed w/ GIOVANNI contact information previously left at bedside. Will continue to monitor. Addendum: 03/14/19 at [address] Amended: Links added.
[2019-03-14 15:00] VITALS: BP 175/84
[2019-03-14 18:00] VITALS: BP 142/67
[2019-03-14] MEDS: lisinopril 20mg tablet PO SCH (21:00)
[2019-03-14] MEDS: insulin glargine (Lantus) pen - multi-dose SQ SCH (21:58)
[2019-03-14 22:00] VITALS: BP 136/63
[2019-03-14] MEDS: lactobacillus rhamnosus 10,000 MMU CELLS/CAPSULE PO SCH (22:02)
[2019-03-15 02:00] VITALS: BP 143/55
[2019-03-15] MEDS: methylPREDNISolone sod succ 125mg/2ml vial IV SCH ×2 (02:16→07:24)
[2019-03-15] MEDS: ipratropium/albuterol 3ml nebule NEB SCH ×3 (03:00→10:51)
--- NOTE | 2019-03-15 06:30 | NUR ---
Problems reprioritized. Patient report given Madonna, questions answered & plan of care reviewed with .
--- NOTE | 2019-03-15 06:30 | NUR ---
Patient in room MED 311. I have received report from SHELDON Dickson and had the opportunity to ask questions and assume patient care.
[2019-03-15 07:00] VITALS: BP 149/66
[2019-03-15 07:04] LABS: BASOPHILS % (AUTO) 0.1 % (0-1); EOSINOPHILS % (AUTO) 0 % (0-6); HEMOGLOBIN 14.6 g/dl (12.0-16.0); LYMPHOCYTES # (AUTO) 0.9 X10'3 (1.1-4.8); LYMPHOCYTES % (AUTO) 22.5 % (21-51); MEAN CORPUSCULAR HEMOGLOBIN 29.2 PG (27.0-31.0); MEAN CORPUSCULAR HGB CONC 32.5 g/dL (33.0-36.5); MEAN CORPUSCULAR VOLUME 89.9 FL (78-98); MEAN PLATELET VOLUME 8.7 FL (7.4-10.4); MONOCYTES # (AUTO) 0.2 X10'3 (0-0.9); NEUTROPHILS # (AUTO) 2.9 X10'3 (1.8-7.7); NEUTROPHILS % (AUTO) 72.4 % (42-75); PLATELET COUNT 165 X10'3 (140-440); RED BLOOD COUNT 5.01 X10'6 (4.20-5.60); RED CELL DISTRIBUTION WIDTH 14.4 % (11.5-14.5)
[2019-03-15 07:16] LABS: ALANINE AMINOTRANSFERASE 20 U/L (12-78); ALBUMIN/GLOBULIN RATIO 0.8 (1.1-1.5); ALKALINE PHOSPHATASE 84 IU/L (46-116); ANION GAP 8 (8-16); ASPARTATE AMINO TRANSFERASE 11 U/L (10-37); BILIRUBIN,TOTAL 0.2 MG/DL (0.1-1.0); BLOOD UREA NITROGEN 28 MG/DL (7-18); BUN/CREATININE RATIO 33.3 (6.6-38.0); CALCIUM 9.1 MG/DL (8.5-10.1); CHLORIDE 103 MMOL/L (99-107); CREATININE 0.84 MG/DL (0.40-0.90); GLUCOSE 207 MG/DL (70-104); MAGNESIUM 1.8 MG/DL (1.5-2.4); POTASSIUM 4.8 MMOL/L (3.5-5.1); SODIUM 137 MMOL/L (135-145); TOTAL CARBON DIOXIDE 26.1 MMOL/L (24-32); TOTAL PROTEIN 6.7 G/DL (6.4-8.2); eGFR 70 ML/MIN
[2019-03-15] MEDS: azithromycin 250mg tablet PO SCH (07:27)
[2019-03-15] MEDS: FLUoxetine 20mg capsule PO SCH (07:27)
[2019-03-15] MEDS: apixaban 5mg tablet PO SCH (07:27)
[2019-03-15] MEDS: clopidogrel 75mg tablet PO SCH (07:27)
[2019-03-15] MEDS: lactobacillus rhamnosus 10,000 MMU CELLS/CAPSULE PO SCH (07:27)
[2019-03-15] MEDS: atorvastatin 20mg tablet PO SCH (07:28)
[2019-03-15] MEDS: CefTRIAXone/D5W-Rocephin 1gm 50 ML IV SCH (07:28)
[2019-03-15] MEDS: montelukast 10mg tablet PO SCH (07:28)
[2019-03-15] MEDS: ferrous sulfate 325mg tablet PO SCH (07:34)
[2019-03-15] MEDS: lamoTRIgine 100mg tablet PO SCH (07:34)
[2019-03-15] MEDS: metoprolol tartrate 25mg tablet PO SCH (07:35)
[2019-03-15] MEDS: K and/or MAG REPLACEMENT MC SCH (07:36)
[2019-03-15] MEDS: nystatin 15 GM powder TP SCH (07:40)
[2019-03-15] MEDS: pantoprazole 40mg Tablet.DR PO SCH (07:48)
[2019-03-15] MEDS: morphine ER 30mg tablet PO SCH (08:00)
[2019-03-15] MEDS: insulin Lispro (HumaLOG) vial - multi-dose SQ SCH ×2 (08:54→13:10)
[2019-03-15 09:40] LABS: ABG BASE EXCESS 2.5 mmol/L (-2.0-3.0); ABG HCO3 28.4 mmol/L (22.0-26.0); ABG OXYGEN SATURATION 95.1 % (95-98); ABG PCO2 (T) 48.5 mmHg (35.0-45.0); ABG PH (T) 7.385 (7.350-7.450); ABG PO2 (T) 78.8 mmHg (83-108); ALLEN'S TEST Positive; FCOHb 0.8 % (0.5-1.5); FLOW 6 L/min; FMetHb 0.3 % (0.3-1.12); FO2Hb 94.1 % (94-100); TOTAL HEMOGLOBIN 14.3 G/dl (12.0-16.0)
[2019-03-15 11:00] VITALS: BP 146/68
[2019-03-15] MEDS ORDERED: NYSPWD TP (11:34)
[2019-03-15] MEDS ORDERED: PRED20TA PO (11:34)
--- NOTE | 2019-03-15 16:51 | NUR ---
reviewed discharge instruction and medication,need for f/u appts pt provided discharge prescription for prednisone and nystatin Sl dc'd ,site clear,pt dc;d via [facility] [employer] with own electric wheelchair
== END 2019-03-15 14:30 | disposition home health service (06) | DRG 140 ==
LOC: ER 15:00 → CANBEDREQ 17:49 → ED HOLD 18:34 → MED 3N 20:05 → CMPBEDREQ 20:12
PROVIDERS: ADMIT Family Medicine; ATTEND Family Medicine
PROC: B32T1ZZ Computerized Tomography (CT Scan) of Left Pulmonary Artery using Low Osmolar Contrast (ICD-10-PCS; principal; 2019-03-12)
PROC: B3201ZZ Computerized Tomography (CT Scan) of Thoracic Aorta using Low Osmolar Contrast (ICD-10-PCS; 2019-03-12)
PROC: B32S1ZZ Computerized Tomography (CT Scan) of Right Pulmonary Artery using Low Osmolar Contrast (ICD-10-PCS; 2019-03-12)
DX: J44.1 Chronic obstructive pulmonary disease with (acute) exacerbation (principal); J96.21 Acute and chronic respiratory failure with hypoxia; N17.0 Acute kidney failure with tubular necrosis; E11.22 Type 2 diabetes mellitus with diabetic chronic kidney disease; E11.42 Type 2 diabetes mellitus with diabetic polyneuropathy; I13.0 Hypertensive heart and chronic kidney disease with heart failure and stage 1 through stage 4 chronic kidney disease, or unspecified chronic kidney disease; I50.9 Heart failure, unspecified; F11.20 Opioid dependence, uncomplicated; D64.9 Anemia, unspecified; E78.5 Hyperlipidemia, unspecified; F17.210 Nicotine dependence, cigarettes, uncomplicated; F41.9 Anxiety disorder, unspecified; I25.10 Atherosclerotic heart disease of native coronary artery without angina pectoris; I48.0 Paroxysmal atrial fibrillation; F12.90 Cannabis use, unspecified, uncomplicated; M19.90 Unspecified osteoarthritis, unspecified site; K21.9 Gastro-esophageal reflux disease without esophagitis; M79.7 Fibromyalgia; G89.4 Chronic pain syndrome; F32.9 Major depressive disorder, single episode, unspecified; N18.9 Chronic kidney disease, unspecified; Z79.01 Long term (current) use of anticoagulants; Z79.02 Long term (current) use of antithrombotics/antiplatelets; Z79.84 Long term (current) use of oral hypoglycemic drugs; Z79.899 Other long term (current) drug therapy; Z91.14 Patient's other noncompliance with medication regimen; Z91.19 Patient's noncompliance with other medical treatment and regimen; Z95.5 Presence of coronary angioplasty implant and graft; Z59.0 Homelessness; Z88.5 Allergy status to narcotic agent; Z88.8 Allergy status to other drugs, medicaments and biological substances; Z90.49 Acquired absence of other specified parts of digestive tract; Z83.3 Family history of diabetes mellitus; Z82.5 Family history of asthma and other chronic lower respiratory diseases; Z71.6 Tobacco abuse counseling; Z99.81 Dependence on supplemental oxygen
CPT/HCPCS: 36415; 36600; 70450; 71045; 71275; 80053; 80061; 80305; 80320; 81001; 82803; 82948; 83036; 83605; 83735; 84100; 84145; 84484; 85018; 85025; 85610; 85730; 87040; 87070; 87081; 87088; 93005; 93306; 94640; 94760; 96374; 97162; 97530; 99285; G0378; J0696; J1644; J1815; J2270; J2405; J2930; J7030; J7512; Q9967